=== PATIENT | male | born 1990 | race African-American/Black ===

== ENCOUNTER 2023-02-10 14:05 | Emergency (ER) | payer OTHER | END 2023-02-10 15:25 | disposition home or self-care (01) | LOC: CSHERS 14:05 | DX: S61.211D Laceration without foreign body of left index finger without damage to nail, subsequent encounter (principal); X58.XXXD Exposure to other specified factors, subsequent encounter ==

== ENCOUNTER 2023-06-09 21:15 | Emergency (ER) | payer OTHER ==
[2023-06-09] MEDS ORDERED: Ketorolac Tromethamine 30 MG (1 mL) VIAL ONE (22:00)
[2023-06-09] MEDS ORDERED: Acetaminophen 500 MG TAB ONE (22:00)
[2023-06-09 22:41] LABS: #Eosinphils 0.1 10x3/uL (0.0-0.5); #Monocytes 1.2 10x3/uL (0.0-1.1); #Neutrophils 8.4 10x3/uL (1.5-8.4); %Basophils 0.3 % (0.0-2.0); %Eosinophils 0.5 % (0.0-6.0); %Lymphocytes 6.3 % (18.0-47.0); %Monocytes 11.6 % (0.0-10.0); %Neutrophils 80.8 % (40.0-75.0); Hematocrit 41.6 % (38.8-50.0); Hemoglobin 14.6 g/dL (13.5-17.5); Mean Corpuscular HGB CONC 35.1 g/dL (32.0-36.0); Mean Corpuscular Hemoglobin 29.4 pg (27.0-33.0); Mean Corpuscular Volume 83.7 fl (81.2-95.1); Mean Platelet Volume 11.1 fl (7.4-10.4); Platelet Count 153 10x3/uL (150-450); RBC Distribution Width 13.1 % (11.5-14.5); Red Blood Cell (RBC) Count 4.97 10x6/uL (4.32-5.72); White Blood Cell (WBC) Count 10.4 10x3/uL (3.5-10.5)
[2023-06-09 22:48] LABS: ALT (SGPT) 13 U/L (8-55); AST (SGOT) 19 U/L (5-34); Albumin 4.1 g/dL (3.5-5.0); Alkaline Phosphatase 52 U/L (40-110); Anion Gap 14 mmol/L (10-20); BUN (Urea Nitrogen) 16 mg/dL (8.9-20.6); Bilirubin, Total 0.5 mg/dL (0.2-1.2); Calc. Creatinine Clearance 0 mL/min (70-130); Calcium 8.8 mg/dL (7.8-10.44); Carbon Dioxide 23 mmol/L (22-29); Chloride 98 mmol/L (98-107); Estimated GFR 101; Globulin 3.6 g/dL (2.4-3.5); Glucose 118 mg/dL (70-105); Potassium 3.8 mmol/L (3.5-5.1); Protein, Total 7.7 g/dL (6.0-8.3); Sodium 131 mmol/L (136-145)
[2023-06-09 23:17] LABS: SARS-CoV-2 NAA Rapid Test Not Detected (NotDetected)
[2023-06-09] MEDS ORDERED: Azithromycin 500 MG VIAL ONE (23:26)
[2023-06-09] MEDS ORDERED: cefTRIAXone (ROCEPHIN) 2 GM VIAL ONE (23:26)
== END 2023-06-10 00:53 | disposition home or self-care (01) ==
LOC: CSHERS 21:15
DX: J10.1 Influenza due to other identified influenza virus with other respiratory manifestations (principal); J18.1 Lobar pneumonia, unspecified organism; F17.210 Nicotine dependence, cigarettes, uncomplicated
CPT/HCPCS: 36415; 71045; 80053; 83605; 85025; 87040; 96361; 96374; 96375; J0456; J0696; J1885